=== PATIENT | female | born 1960 | race Caucasian/White ===

== ENCOUNTER 2021-10-22 15:34 | Inpatient (IN) ==
[2021-10-22] MEDS ORDERED: Thiamine (B-1) 200 MG in 0.9 % Sodium Chloride 50 ML IVPB ONE (15:58)
[2021-10-22] MEDS ORDERED: Iopamidol - 370 500 ML MLS IVP ONE (16:01)
[2021-10-22 16:29] LABS: ABG Base Excess 5 mEq/L (-2 to 3); ABG Chloride 102 mEq/L (98-107); ABG Glucose 384 mg/dL (60-95); ABG HCO3 30 mEq/L (21-27); ABG Ionized Calcium 1.21 mmol/L (1.15-1.35); ABG Oxygen Saturation 96 % (95-98); ABG PCO2 42 mmHg (35-45); ABG PH 7.46 pH Units (7.32-7.45); ABG PO2 76 mmHg (85-104); ABG TCO2 31 mEq/L (20-26)
[2021-10-22 16:37] LABS: Mean Corpuscular Volume 103.1 fL (83.0-100.0)
[2021-10-22 16:39] LABS: Hematocrit 26.2 % (35.3-44.9); Hemoglobin 8.8 g/dL (11.5-15.4); Immature Platelets 23.7 % (1.1-6.1); Mean Corpuscular HGB Conc 33.6 g/dL (31.6-35.5); Mean Corpuscular Hemoglobin 34.6 pg (28.0-33.3); Monocytes # 0.2 K/mcL (0.0-1.3); Red Blood Count 2.54 M/mcL (3.82-4.97); Red Cell Distribution Width 24.5 % (11.5-14.5); White Blood Count 1.9 K/mcL (4.3-11.1)
[2021-10-22 16:43] LABS: Amphetamine Screen,Urine Negative ng/mL (Cutoff=1000); Barbiturate Screen,Urine Negative ng/mL (Cutoff=200); Benzodiazepines Screen,Urine Negative ng/mL (Cutoff=200); Cannabinoid Screen,Urine Negative ng/mL (Cutoff = 50); Cocaine Screen,Urine Negative ng/mL (Cutoff= 300); Opiate Screen,Urine Negative ng/mL (Cutoff=300); Phencyclidine Screen,Urine Negative ng/mL (Cutoff=25)
[2021-10-22 16:46] LABS: INR 1.4; Prothrombin Time 15.5 Seconds (9.4-12.1)
[2021-10-22 16:48] LABS: Activated Partial Thrombo Time 29.1 Seconds (26.0-36.0)
[2021-10-22 16:54] LABS: Bacteria,Urine Few per hpf (None-Few); Bilirubin,Urine Negative (Negative); Blood,Urine Trace (Negative); Clarity,Urine Turbid (Clear); Color,Urine Yellow (Yellow); Glucose,Urine (UA) >=1000 mg/dL (Normal); Ketones,Urine Negative (Negative); Leukocyte Esterase,Urine Moderate (Negative); Mucus,Urine Few per lpf (None-Few); Nitrite,Urine Negative (Negative); PH,Urine 6.5 pH Units (5.0-8.0); Protein,Urine Trace mg/dL (Neg-Trace); RBC,Urine 0-3 per hpf (0-3); Squamous Epithelial Cell,Urine Few per hpf (None-Few); Urobilinogen,Urine Normal (Normal); WBC,Urine 50-100 per hpf (0-3)
[2021-10-22 16:57] LABS: Alanine Aminotransferase 15 Units/L (7-52); Albumin 2.9 g/dL (3.5-5.7); Albumin/Globulin Ratio 0.9 (1.1-2.2); Alkaline Phosphatase 105 Units/L (34-104); Aspartate Amino Transferase 23 Units/L (13-39); BUN/Creatinine Ratio 24 (6-26); Bilirubin,Direct 0.6 mg/dL (0.0-0.2); Bilirubin,Indirect 1.7 mg/dL (0.0-1.0); Bilirubin,Total 2.3 mg/dL (0.3-1.0); Blood Urea Nitrogen 23 mg/dL (8-23); Calcium 8.8 mg/dL (8.6-10.3); Carbon Dioxide 32 mEq/L (23-29); Chloride 102 mEq/L (98-107); Ethanol < 10 mg/dL (Less than 10); Globulin 3.3 g/dL (2.4-3.5); Glucose 377 mg/dL (70-105); Osmolality,Calculated 311 (280-300); Potassium 3.5 mEq/L (3.5-5.1); Sodium 141 mEq/L (136-145); Total Protein 6.2 g/dL (6.4-8.9); Troponin I < 0.03 ng/mL (< 0.04); eGFR For African Americans > 60 (> 60); eGFR For Non-African Americans > 60 (> 60)
[2021-10-22 17:25] LABS: Thyroid Stimulating Hormone 2.324 mcIU/mL (0.340-5.600)
[2021-10-22 17:49] LABS: Platelet Count 40 K/mcL (140-400)
[2021-10-22 17:50] LABS: Anisocytosis 2+ (Not Present); Hypochromasia Present (Not Present)
[2021-10-22 17:51] LABS: Microcytosis Present (Not Present); Ovalocytes 1+ (Not Present); Platelet Estimate Marked Decrease (Normal); Polychromasia 1+ (Not Present)
[2021-10-22 17:52] LABS: Tear Drop Cells 1+ (Not Present)
[2021-10-22 17:55] LABS: Neutrophils # 0.7 K/mcL (1.6-8.9)
[2021-10-22] MEDS ORDERED: Ondansetron 4 MG/2 ML VIAL IVP PRN (21:06)
[2021-10-22] MEDS ORDERED: Acetaminophen 325 MG TABLET PO PRN (21:06)
[2021-10-22] MEDS ORDERED: Naloxone 0.4 MG/ML INJ IVP PRN (21:06)
[2021-10-22] MEDS ORDERED: Lactulose 200 GM, Sodium Chloride IRRigation 700 ML RC ONE (21:09)
[2021-10-22] MEDS ORDERED: D5% in Water 1,000 ML IVC PRN (21:09)
[2021-10-22] MEDS ORDERED: Dextrose Gel 15 GM/37.5 ML TUBE PO PRN ×2 (21:09)
[2021-10-22] MEDS ORDERED: *HR* Dextrose 50 % in Water (Syg) 50 ML SYRINGE IVP PRN (21:09)
[2021-10-22] MEDS ORDERED: *HR* LORazepam 2 MG/ML VIAL IVP ONE (21:24)
[2021-10-22] MEDS ORDERED: Pantoprazole 40 MG VIAL IVP ONE (22:23)
[2021-10-22] MEDS ORDERED: Octreotide 50 MCG/ML INJ IVP ONE (22:23)
[2021-10-22] MEDS ORDERED: *HR* LORazepam 2 MG/ML VIAL IVP PRN ×2 (22:34)
[2021-10-22 22:48] LABS: Estimated Average Glucose 189 mg/dl; Hemoglobin A1C 8.2 %
[2021-10-22] MEDS ORDERED: Furosemide 20 MG/2 ML VIAL IVP ONE (23:02)
[2021-10-22] MEDS ORDERED: Insulin DETEMIR 100 UNIT/ML X5UNITS SUBQ ONE (23:15)
[2021-10-22] MEDS: *HR* LORazepam 2 MG/ML VIAL IVP PRN (23:19)
[2021-10-22] MEDS: Octreotide 400 MCG in 0.9 % Sodium Chloride 100 ML IVC SCH (23:31)
[2021-10-22 23:37] LABS: Acetaminophen < 10 mcg/mL (10-20); Salicylate < 2.5 mg/dL (15.0-30.0)
[2021-10-22] MEDS: cefTRIAXone 2,000 MG in 0.9 % Sodium Chloride Mini Bag 100 ML IVPB SCH (23:41)
[2021-10-23] MEDS: Insulin LISPRO 300 UNITS/3 ML VIAL SUBQ SCH ×4 (02:53→18:03)
[2021-10-23] MEDS: Pantoprazole 40 MG VIAL IVP SCH ×2 (06:05→17:53)
[2021-10-23 07:06] LABS: VBG Ionized Calcium 1.08 mmol/L (1.15-1.35)
[2021-10-23 07:23] LABS: % Iron Saturation 83 % (15-50); Iron 156 mcg/dL (50-170); Transferrin 135 mg/dL (203-362)
[2021-10-23] MEDS: Furosemide 20 MG/2 ML VIAL IVP SCH (07:49)
[2021-10-23] MEDS: cefTRIAXone 2,000 MG in 0.9 % Sodium Chloride Mini Bag 100 ML IVPB SCH (07:50)
[2021-10-23] MEDS: Nicotine 14 MG PATCH.TD24 TD SCH (08:00)
[2021-10-23] MEDS: Octreotide 400 MCG in 0.9 % Sodium Chloride 100 ML IVC SCH ×2 (08:09→16:08)
[2021-10-23 08:13] LABS: Alanine Aminotransferase 11 Units/L (7-52); Albumin 2.3 g/dL (3.5-5.7); Albumin/Globulin Ratio 0.9 (1.1-2.2); Alkaline Phosphatase 60 Units/L (34-104); Aspartate Amino Transferase 18 Units/L (13-39); BUN/Creatinine Ratio 27 (6-26); Bilirubin,Total 1.6 mg/dL (0.3-1.0); Blood Urea Nitrogen 17 mg/dL (8-23); Calcium 8.1 mg/dL (8.6-10.3); Carbon Dioxide 36 mEq/L (23-29); Chloride 108 mEq/L (98-107); Globulin 2.5 g/dL (2.4-3.5); Glucose 145 mg/dL (70-105); Lactate Dehydrogenase 216 Units/L (140-271); Magnesium 1.4 mg/dL (1.6-2.6); Osmolality,Calculated 310 (280-300); Phosphorous 2.9 mg/dL (2.7-4.5); Potassium 3.1 mEq/L (3.5-5.1); Sodium 148 mEq/L (136-145); Total Protein 4.8 g/dL (6.4-8.9); eGFR For African Americans > 60 (> 60); eGFR For Non-African Americans > 60 (> 60)
[2021-10-23 08:18] LABS: Hematocrit 19.5 % (35.3-44.9); Hemoglobin 6.5 g/dL (11.5-15.4); Immature Platelets 18.5 % (1.1-6.1); Immature Reticulocyte % 10.4 % (11.0-38.0); Mean Corpuscular HGB Conc 33.3 g/dL (31.6-35.5); Mean Corpuscular Hemoglobin 34.6 pg (28.0-33.3); Mean Corpuscular Volume 103.7 fL (83.0-100.0); Red Blood Count 1.88 M/mcL (3.82-4.97); Red Cell Distribution Width 24.4 % (11.5-14.5); Retculocyte # 0.07 M/mcL (0.05-0.10); Reticulocyte % 3.6 % (1.6-2.8); White Blood Count 1.8 K/mcL (4.3-11.1)
[2021-10-23 08:23] LABS: Platelet Count 35 K/mcL (140-400)
[2021-10-23 08:24] LABS: INR 1.5
[2021-10-23 08:26] LABS: Activated Partial Thrombo Time 31.2 Seconds (26.0-36.0)
[2021-10-23 08:54] LABS: Monocytes # 0.3 K/mcL (0.0-1.3); Neutrophils # 0.4 K/mcL (1.6-8.9); Poikilocytosis 2+ (Not Present)
[2021-10-23 08:55] LABS: Anisocytosis 1+ (Not Present); Hypochromasia Present (Not Present); Platelet Estimate Decreased (Normal)
[2021-10-23] MEDS ORDERED: Lactulose Oral Soln 20 GM/30 ML UDC PO SCH (09:00)
[2021-10-23] MEDS: *HR* LORazepam 2 MG/ML VIAL IVP PRN ×2 (11:11→22:45)
[2021-10-23] MEDS: Lactulose 200 GM, Sodium Chloride IRRigation 700 ML RC SCH ×2 (12:10→23:20)
[2021-10-23 12:44] LABS: Hemoglobin 6.5 g/dL (11.5-15.4)
[2021-10-23 12:46] LABS: Hematocrit 19.8 % (35.3-44.9)
[2021-10-23 15:43] LABS: Thyroid Stimulating Hormone 0.669 mcIU/mL (0.340-5.600)
[2021-10-23] MEDS ORDERED: 0.9 % Sodium Chloride 250 ML ONE (18:30)
[2021-10-23 18:33] LABS: Hemoglobin 6.6 g/dL (11.5-15.4)
[2021-10-23 19:17] LABS: Folate 11.8 ng/mL (3.0-16.0)
[2021-10-23] MEDS: Thiamine (B-1) 100 MG, Folic Acid 1 MG, MVI, adult with vitamin K 10 ML in 0.9 % Sodi... IVPB SCH (19:30)
[2021-10-24] MEDS: *HR* LORazepam 2 MG/ML VIAL IVP PRN ×3 (00:38→23:03)
[2021-10-24] MEDS: Insulin LISPRO 300 UNITS/3 ML VIAL SUBQ SCH ×4 (00:42→17:24)
[2021-10-24] MEDS: Octreotide 400 MCG in 0.9 % Sodium Chloride 100 ML IVC SCH (00:45)
[2021-10-24 02:02] LABS: Basophils % 0.9 %; Eosinophils % 1.8 %; Hematocrit 28.8 % (35.3-44.9); Hemoglobin 9.6 g/dL (11.5-15.4); Immature Granulocytes % 1.8 % (0-4); Immature Platelets 16.1 % (1.1-6.1); Lymphocytes % 45.7 %; Mean Corpuscular HGB Conc 33.3 g/dL (31.6-35.5); Mean Corpuscular Hemoglobin 32.8 pg (28.0-33.3); Mean Corpuscular Volume 98.3 fL (83.0-100.0); Monocytes # 0.4 K/mcL (0.0-1.3); Monocytes % 18.3 %; Neutrophils # 0.7 K/mcL (1.6-8.9); Red Blood Count 2.93 M/mcL (3.82-4.97); Red Cell Distribution Width 22.2 % (11.5-14.5); Segmented Neutrophils % 31.5 %; White Blood Count 2.2 K/mcL (4.3-11.1)
[2021-10-24 02:06] LABS: Platelet Count 33 K/mcL (140-400)
[2021-10-24 02:20] LABS: Alanine Aminotransferase 12 Units/L (7-52); Albumin 2.4 g/dL (3.5-5.7); Albumin/Globulin Ratio 0.9 (1.1-2.2); Alkaline Phosphatase 54 Units/L (34-104); Aspartate Amino Transferase 28 Units/L (13-39); BUN/Creatinine Ratio 28 (6-26); Bilirubin,Total 5.7 mg/dL (0.3-1.0); Blood Urea Nitrogen 19 mg/dL (8-23); Calcium 7.6 mg/dL (8.6-10.3); Carbon Dioxide 33 mEq/L (23-29); Chloride 106 mEq/L (98-107); Globulin 2.6 g/dL (2.4-3.5); Glucose 201 mg/dL (70-105); Magnesium 1.4 mg/dL (1.6-2.6); Osmolality,Calculated 308 (280-300); Phosphorous 3.5 mg/dL (2.7-4.5); Potassium 3.4 mEq/L (3.5-5.1); Sodium 145 mEq/L (136-145); eGFR For African Americans > 60 (> 60); eGFR For Non-African Americans > 60 (> 60)
[2021-10-24 02:25] LABS: Anisocytosis 2+ (Not Present); Platelet Estimate Decreased (Normal); Poikilocytosis 1+ (Not Present)
[2021-10-24 02:26] LABS: Polychromasia 1+ (Not Present)
[2021-10-24] MEDS: Pantoprazole 40 MG VIAL IVP SCH ×2 (06:55→17:22)
[2021-10-24 07:40] LABS: Hematocrit 32.2 % (35.3-44.9); Hemoglobin 10.8 g/dL (11.5-15.4)
[2021-10-24] MEDS: Nicotine 14 MG PATCH.TD24 TD SCH (08:13)
[2021-10-24] MEDS: Furosemide 20 MG/2 ML VIAL IVP SCH (08:14)
[2021-10-24] MEDS: cefTRIAXone 2,000 MG in 0.9 % Sodium Chloride Mini Bag 100 ML IVPB SCH (08:14)
[2021-10-24 11:00] LABS: Albumin 2.3 g/dL (3.5-5.7); Albumin/Globulin Ratio 0.9 (1.1-2.2); Bilirubin,Direct 1.4 mg/dL (0.0-0.2); Bilirubin,Indirect 2.4 mg/dL (0.0-1.0); Bilirubin,Total 3.8 mg/dL (0.3-1.0); Globulin 2.5 g/dL (2.4-3.5); Total Protein 4.8 g/dL (6.4-8.9)
[2021-10-24 12:55] LABS: Hemoglobin 11.2 g/dL (11.5-15.4)
[2021-10-24 12:57] LABS: Hematocrit 33.6 % (35.3-44.9)
[2021-10-24] MEDS: Lactulose 200 GM, Sodium Chloride IRRigation 700 ML RC SCH ×2 (13:09→23:03)
[2021-10-24 14:21] LABS: INR 1.4; Prothrombin Time 15.9 Seconds (9.4-12.1)
[2021-10-24] MEDS: Thiamine (B-1) 100 MG, Folic Acid 1 MG, MVI, adult with vitamin K 10 ML in 0.9 % Sodi... IVPB SCH (17:21)
[2021-10-24] MEDS ORDERED: Octreotide 400 MCG in 0.9 % Sodium Chloride 100 ML IVC SCH (17:30)
[2021-10-25] MEDS: Insulin LISPRO 300 UNITS/3 ML VIAL SUBQ SCH ×4 (00:39→17:55)
[2021-10-25] MEDS: Pantoprazole 40 MG VIAL IVP SCH ×2 (05:20→18:12)
[2021-10-25] MEDS: Nicotine 14 MG PATCH.TD24 TD SCH (08:40)
[2021-10-25] MEDS: Furosemide 20 MG/2 ML VIAL IVP SCH (08:40)
[2021-10-25] MEDS: cefTRIAXone 2,000 MG in 0.9 % Sodium Chloride Mini Bag 100 ML IVPB SCH (08:43)
[2021-10-25] MEDS: *HR* LORazepam 2 MG/ML VIAL IVP PRN (08:49)
[2021-10-25 09:21] LABS: Eosinophils # 0.1 K/mcL (0.0-0.6); Hematocrit 26.8 % (35.3-44.9); Hemoglobin 8.9 g/dL (11.5-15.4); Immature Platelets 11.8 % (1.1-6.1); Lymphocytes # 1.2 K/mcL (0.6-4.6); Mean Corpuscular HGB Conc 33.2 g/dL (31.6-35.5); Mean Corpuscular Hemoglobin 33.2 pg (28.0-33.3); Mean Platelet Volume 13.1 fL (9.4-12.4); Red Blood Count 2.68 M/mcL (3.82-4.97); Red Cell Distribution Width 23.3 % (11.5-14.5)
[2021-10-25 09:34] LABS: Platelet Count 47 K/mcL (140-400)
[2021-10-25 09:39] LABS: Alanine Aminotransferase 11 Units/L (7-52); Albumin 2.3 g/dL (3.5-5.7); Albumin/Globulin Ratio 0.9 (1.1-2.2); Alkaline Phosphatase 53 Units/L (34-104); Aspartate Amino Transferase 26 Units/L (13-39); BUN/Creatinine Ratio 32 (6-26); Bilirubin,Indirect 1.7 mg/dL (0.0-1.0); Bilirubin,Total 2.7 mg/dL (0.3-1.0); Blood Urea Nitrogen 18 mg/dL (8-23); Calcium 7.5 mg/dL (8.6-10.3); Carbon Dioxide 36 mEq/L (23-29); Chloride 109 mEq/L (98-107); Globulin 2.5 g/dL (2.4-3.5); Glucose 173 mg/dL (70-105); Magnesium 1.5 mg/dL (1.6-2.6); Osmolality,Calculated 312 (280-300); Phosphorous 2.7 mg/dL (2.7-4.5); Potassium 3.1 mEq/L (3.5-5.1); Sodium 148 mEq/L (136-145); Total Protein 4.8 g/dL (6.4-8.9); eGFR For African Americans > 60 (> 60); eGFR For Non-African Americans > 60 (> 60)
[2021-10-25 10:32] LABS: Anisocytosis 2+ (Not Present); Monocytes # 0.2 K/mcL (0.0-1.3); Neutrophils # 0.5 K/mcL (1.6-8.9); Poikilocytosis 2+ (Not Present)
[2021-10-25 10:33] LABS: Hypochromasia Present (Not Present); Platelet Estimate Decreased (Normal)
[2021-10-25] MEDS: Lactulose Oral Soln 20 GM/30 ML UDC PO SCH ×2 (11:58→21:55)
[2021-10-25] MEDS: Lactulose 200 GM, Sodium Chloride IRRigation 700 ML RC SCH ×2 (12:39→21:56)
[2021-10-25] MEDS: Thiamine (B-1) 100 MG, Folic Acid 1 MG, MVI, adult with vitamin K 10 ML in 0.9 % Sodi... IVPB SCH (17:55)
[2021-10-25] MEDS: Fluconazole 100 MG TABLET PO SCH (18:06)
[2021-10-26] MEDS: Insulin LISPRO 300 UNITS/3 ML VIAL SUBQ SCH ×5 (00:03→21:14)
[2021-10-26 03:32] LABS: Hematocrit 24.2 % (35.3-44.9); Mean Corpuscular HGB Conc 33.1 g/dL (31.6-35.5); Mean Corpuscular Hemoglobin 32.8 pg (28.0-33.3); Mean Corpuscular Volume 99.2 fL (83.0-100.0); Red Blood Count 2.44 M/mcL (3.82-4.97)
[2021-10-26 03:33] LABS: Eosinophils # 0.1 K/mcL (0.0-0.6); Immature Platelets 10.3 % (1.1-6.1); Red Cell Distribution Width 22.5 % (11.5-14.5); White Blood Count 1.3 K/mcL (4.3-11.1)
[2021-10-26 03:41] LABS: Alanine Aminotransferase 12 Units/L (7-52); Albumin 2.6 g/dL (3.5-5.7); Alkaline Phosphatase 52 Units/L (34-104); Aspartate Amino Transferase 32 Units/L (13-39); BUN/Creatinine Ratio 40 (6-26); Bilirubin,Direct 1.1 mg/dL (0.0-0.2); Bilirubin,Indirect 1.8 mg/dL (0.0-1.0); Bilirubin,Total 2.9 mg/dL (0.3-1.0); Blood Urea Nitrogen 19 mg/dL (8-23); Calcium 7.8 mg/dL (8.6-10.3); Carbon Dioxide 36 mEq/L (23-29); Chloride 111 mEq/L (98-107); Globulin 2.5 g/dL (2.4-3.5); Glucose 122 mg/dL (70-105); Osmolality,Calculated 312 (280-300); Potassium 3.3 mEq/L (3.5-5.1); Sodium 149 mEq/L (136-145); Total Protein 5.1 g/dL (6.4-8.9); eGFR For African Americans > 60 (> 60); eGFR For Non-African Americans > 60 (> 60)
[2021-10-26 04:02] LABS: Neutrophils # 0.3 K/mcL (1.6-8.9); Platelet Count 35 K/mcL (140-400)
[2021-10-26] MEDS: Pantoprazole 40 MG VIAL IVP SCH ×2 (05:25→17:05)
[2021-10-26 06:28] LABS: Anisocytosis 2+ (Not Present); Lymphocytes # 0.7 K/mcL (0.6-4.6); Monocytes # 0.2 K/mcL (0.0-1.3); Platelet Estimate Marked Decrease (Normal); Poikilocytosis 1+ (Not Present)
[2021-10-26 06:49] LABS: Magnesium 1.5 mg/dL (1.6-2.6)
[2021-10-26] MEDS: Octreotide 400 MCG in 0.9 % Sodium Chloride 100 ML IVC SCH ×2 (07:15→07:16)
[2021-10-26] MEDS: Furosemide 20 MG/2 ML VIAL IVP SCH (08:01)
[2021-10-26] MEDS: Vitamin B Complex/Vit C/Vit E 1 EACH TABLET PO SCH (08:01)
[2021-10-26] MEDS: Thiamine (B-1) 100 MG TABLET PO SCH (08:01)
[2021-10-26] MEDS: Lactulose Oral Soln 20 GM/30 ML UDC PO SCH ×2 (08:02→20:59)
[2021-10-26] MEDS: cefTRIAXone 2,000 MG in 0.9 % Sodium Chloride 10 ML IVP SCH (08:02)
[2021-10-26] MEDS: Nicotine 14 MG PATCH.TD24 TD SCH ×2 (08:03→10:19)
[2021-10-26] MEDS: Folic Acid 1 MG TABLET PO SCH (08:03)
[2021-10-26] MEDS: Fluconazole 100 MG TABLET PO SCH (08:07)
[2021-10-26] MEDS: Lactulose 200 GM, Sodium Chloride IRRigation 700 ML RC SCH ×2 (09:53→20:59)
[2021-10-27 06:34] LABS: Hemoglobin 7.7 g/dL (11.5-15.4); Mean Corpuscular Hemoglobin 32.8 pg (28.0-33.3); Red Blood Count 2.35 M/mcL (3.82-4.97)
[2021-10-27 06:36] LABS: Immature Platelets 9.5 % (1.1-6.1); Mean Corpuscular HGB Conc 33.5 g/dL (31.6-35.5); Mean Corpuscular Volume 97.9 fL (83.0-100.0); Monocytes # 0.1 K/mcL (0.0-1.3); Neutrophils # 0.2 K/mcL (1.6-8.9); Red Cell Distribution Width 22.2 % (11.5-14.5); White Blood Count 1.2 K/mcL (4.3-11.1)
[2021-10-27 06:38] LABS: Platelet Count 31 K/mcL (140-400)
[2021-10-27] MEDS: Pantoprazole 40 MG VIAL IVP SCH ×2 (06:50→16:48)
[2021-10-27 06:56] LABS: Lymphocytes # 0.9 K/mcL (0.6-4.6); Platelet Estimate Decreased (Normal)
[2021-10-27 07:03] LABS: Alanine Aminotransferase 12 Units/L (7-52); Albumin 2.4 g/dL (3.5-5.7); Alkaline Phosphatase 48 Units/L (34-104); Aspartate Amino Transferase 36 Units/L (13-39); BUN/Creatinine Ratio 34 (6-26); Bilirubin,Direct 0.9 mg/dL (0.0-0.2); Bilirubin,Indirect 1.9 mg/dL (0.0-1.0); Bilirubin,Total 2.8 mg/dL (0.3-1.0); Blood Urea Nitrogen 15 mg/dL (8-23); Calcium 7.6 mg/dL (8.6-10.3); Carbon Dioxide 34 mEq/L (23-29); Chloride 109 mEq/L (98-107); Globulin 2.3 g/dL (2.4-3.5); Glucose 107 mg/dL (70-105); Magnesium 1.6 mg/dL (1.6-2.6); Osmolality,Calculated 303 (280-300); Phosphorous 3.4 mg/dL (2.7-4.5); Potassium 3.4 mEq/L (3.5-5.1); Sodium 146 mEq/L (136-145); Total Protein 4.7 g/dL (6.4-8.9); eGFR For African Americans > 60 (> 60); eGFR For Non-African Americans > 60 (> 60)
[2021-10-27] MEDS ORDERED: Potassium Chloride Elixir 20 MEQ/15 ML UDC PO ONE (08:11)
[2021-10-27] MEDS ORDERED: CefTRIAXone 2,000 MG VIAL ONE (08:36)
[2021-10-27] MEDS: Insulin LISPRO 300 UNITS/3 ML VIAL SUBQ SCH ×4 (08:43→21:24)
[2021-10-27] MEDS: Folic Acid 1 MG TABLET PO SCH (08:46)
[2021-10-27] MEDS: Fluconazole 100 MG TABLET PO SCH (08:46)
[2021-10-27] MEDS: Thiamine (B-1) 100 MG TABLET PO SCH (08:46)
[2021-10-27] MEDS: Vitamin B Complex/Vit C/Vit E 1 EACH TABLET PO SCH (08:46)
[2021-10-27] MEDS: Lactulose Oral Soln 20 GM/30 ML UDC PO SCH ×2 (08:46→21:24)
[2021-10-27] MEDS: Furosemide 20 MG/2 ML VIAL IVP SCH (08:47)
[2021-10-27] MEDS: Nicotine 14 MG PATCH.TD24 TD SCH (08:47)
[2021-10-27] MEDS: cefTRIAXone 2,000 MG in 0.9 % Sodium Chloride 10 ML IVP SCH (08:48)
[2021-10-27] MEDS: Lactulose 200 GM, Sodium Chloride IRRigation 700 ML RC SCH (08:50)
[2021-10-28 02:25] LABS: Hemoglobin 8.3 g/dL (11.5-15.4)
[2021-10-28 02:27] LABS: Basophils % 0.9 %; Eosinophils # 0.1 K/mcL (0.0-0.6); Eosinophils % 4.8 %; Hematocrit 24.9 % (35.3-44.9); Immature Granulocytes % 2.6 % (0-4); Immature Platelets 11.8 % (1.1-6.1); Lymphocytes # 1.4 K/mcL (0.6-4.6); Lymphocytes % 61.8 %; Mean Corpuscular HGB Conc 33.3 g/dL (31.6-35.5); Mean Corpuscular Hemoglobin 32.8 pg (28.0-33.3); Mean Corpuscular Volume 98.4 fL (83.0-100.0); Mean Platelet Volume 13.8 fL (9.4-12.4); Monocytes # 0.3 K/mcL (0.0-1.3); Monocytes % 13.6 %; Neutrophils # 0.4 K/mcL (1.6-8.9); Red Blood Count 2.53 M/mcL (3.82-4.97); Red Cell Distribution Width 22.2 % (11.5-14.5); Segmented Neutrophils % 16.3 %; White Blood Count 2.3 K/mcL (4.3-11.1)
[2021-10-28 02:34] LABS: Platelet Count 37 K/mcL (140-400)
[2021-10-28 02:43] LABS: Alanine Aminotransferase 13 Units/L (7-52); Albumin 2.4 g/dL (3.5-5.7); Albumin/Globulin Ratio 0.9 (1.1-2.2); Alkaline Phosphatase 54 Units/L (34-104); Aspartate Amino Transferase 26 Units/L (13-39); BUN/Creatinine Ratio 31 (6-26); Bilirubin,Direct 0.9 mg/dL (0.0-0.2); Bilirubin,Indirect 1.4 mg/dL (0.0-1.0); Bilirubin,Total 2.3 mg/dL (0.3-1.0); Blood Urea Nitrogen 14 mg/dL (8-23); Calcium 8.3 mg/dL (8.6-10.3); Carbon Dioxide 35 mEq/L (23-29); Chloride 109 mEq/L (98-107); Globulin 2.7 g/dL (2.4-3.5); Glucose 51 mg/dL (70-105); Magnesium 1.5 mg/dL (1.6-2.6); Osmolality,Calculated 304 (280-300); Phosphorous 3.1 mg/dL (2.7-4.5); Potassium 3.2 mEq/L (3.5-5.1); Sodium 148 mEq/L (136-145); Total Protein 5.1 g/dL (6.4-8.9); eGFR For African Americans > 60 (> 60); eGFR For Non-African Americans > 60 (> 60)
[2021-10-28 03:14] LABS: Anisocytosis 2+ (Not Present); Hypochromasia Present (Not Present); Platelet Estimate Marked Decrease (Normal)
[2021-10-28] MEDS: Pantoprazole 40 MG VIAL IVP SCH (06:32)
[2021-10-28] MEDS: cefTRIAXone 2,000 MG in 0.9 % Sodium Chloride 10 ML IVP SCH (08:23)
[2021-10-28] MEDS: Fluconazole 100 MG TABLET PO SCH (08:25)
[2021-10-28] MEDS: Nicotine 14 MG PATCH.TD24 TD SCH (08:26)
[2021-10-28] MEDS: Vitamin B Complex/Vit C/Vit E 1 EACH TABLET PO SCH (08:26)
[2021-10-28] MEDS: Thiamine (B-1) 100 MG TABLET PO SCH (08:26)
[2021-10-28] MEDS: Furosemide 20 MG/2 ML VIAL IVP SCH (08:26)
[2021-10-28] MEDS: Folic Acid 1 MG TABLET PO SCH (08:28)
[2021-10-28] MEDS: Lactulose Oral Soln 20 GM/30 ML UDC PO SCH ×2 (08:28→21:30)
[2021-10-28] MEDS: Insulin LISPRO 300 UNITS/3 ML VIAL SUBQ SCH ×4 (08:29→21:29)
[2021-10-29 03:29] LABS: Basophils % 0.6 %; Mean Corpuscular Volume 98.6 fL (83.0-100.0)
[2021-10-29 03:31] LABS: Eosinophils # 0.1 K/mcL (0.0-0.6); Eosinophils % 4.8 %; Hematocrit 21.2 % (35.3-44.9); Hemoglobin 7.1 g/dL (11.5-15.4); Immature Granulocytes % 3.6 % (0-4); Lymphocytes % 59.6 %; Mean Corpuscular HGB Conc 33.5 g/dL (31.6-35.5); Monocytes # 0.3 K/mcL (0.0-1.3); Monocytes % 17.5 %; Neutrophils # 0.2 K/mcL (1.6-8.9); Red Blood Count 2.15 M/mcL (3.82-4.97); Red Cell Distribution Width 21.5 % (11.5-14.5); Segmented Neutrophils % 13.9 %; White Blood Count 1.7 K/mcL (4.3-11.1)
[2021-10-29 03:48] LABS: Platelet Count 27 K/mcL (140-400)
[2021-10-29 04:01] LABS: Alanine Aminotransferase 11 Units/L (7-52); Albumin 2.3 g/dL (3.5-5.7); Alkaline Phosphatase 57 Units/L (34-104); Aspartate Amino Transferase 22 Units/L (13-39); BUN/Creatinine Ratio 21 (6-26); Bilirubin,Direct 0.6 mg/dL (0.0-0.2); Bilirubin,Total 1.6 mg/dL (0.3-1.0); Blood Urea Nitrogen 10 mg/dL (8-23); Calcium 8.1 mg/dL (8.6-10.3); Carbon Dioxide 31 mEq/L (23-29); Chloride 106 mEq/L (98-107); Globulin 2.4 g/dL (2.4-3.5); Glucose 302 mg/dL (70-105); Magnesium 1.3 mg/dL (1.6-2.6); Osmolality,Calculated 300 (280-300); Phosphorous 2.6 mg/dL (2.7-4.5); Potassium 3.5 mEq/L (3.5-5.1); Sodium 140 mEq/L (136-145); Total Protein 4.7 g/dL (6.4-8.9); eGFR For African Americans > 60 (> 60); eGFR For Non-African Americans > 60 (> 60)
[2021-10-29 04:14] LABS: Anisocytosis 2+ (Not Present); Hypochromasia Present (Not Present); Ovalocytes 1+ (Not Present); Platelet Estimate Marked Decrease (Normal)
[2021-10-29] MEDS: Thiamine (B-1) 100 MG TABLET PO SCH (07:40)
[2021-10-29] MEDS: Vitamin B Complex/Vit C/Vit E 1 EACH TABLET PO SCH (07:40)
[2021-10-29] MEDS: Nicotine 14 MG PATCH.TD24 TD SCH (07:40)
[2021-10-29] MEDS: Folic Acid 1 MG TABLET PO SCH (07:40)
[2021-10-29] MEDS: Furosemide 20 MG/2 ML VIAL IVP SCH (07:41)
[2021-10-29] MEDS: Fluconazole 100 MG TABLET PO SCH (07:41)
[2021-10-29] MEDS: Lactulose Oral Soln 20 GM/30 ML UDC PO SCH ×2 (07:42→21:06)
[2021-10-29] MEDS: cefTRIAXone 2,000 MG in 0.9 % Sodium Chloride 10 ML IVP SCH (07:42)
[2021-10-29] MEDS: Insulin LISPRO 300 UNITS/3 ML VIAL SUBQ SCH ×4 (07:57→21:06)
[2021-10-29] MEDS ORDERED: Potassium Phosphate 44 MEQ in 0.9 % Sodium Chloride 250 ML IVPB ONE (08:11)
[2021-10-29 08:50] LABS: Hematocrit 23.8 % (35.3-44.9); Immature Platelets 13.2 % (1.1-6.1); Mean Corpuscular HGB Conc 33.6 g/dL (31.6-35.5); Mean Corpuscular Hemoglobin 33.1 pg (28.0-33.3); Mean Corpuscular Volume 98.3 fL (83.0-100.0); Red Blood Count 2.42 M/mcL (3.82-4.97); Red Cell Distribution Width 21.4 % (11.5-14.5); White Blood Count 1.8 K/mcL (4.3-11.1)
[2021-10-29 08:59] LABS: Platelet Count 29 K/mcL (140-400)
[2021-10-29] MEDS: Insulin DETEMIR 100 UNIT/ML X5UNITS SUBQ SCH ×2 (09:47→21:06)
[2021-10-29] MEDS: Melatonin 3 MG TABLET PO PRN (21:32)
[2021-10-30 02:59] LABS: Nucleated Red Blood Cells 1.1 /100 WBC (0)
[2021-10-30 03:01] LABS: Hematocrit 21.3 % (35.3-44.9); Hemoglobin 7.1 g/dL (11.5-15.4); Immature Platelets 17.4 % (1.1-6.1); Lymphocytes # 1.1 K/mcL (0.6-4.6); Mean Corpuscular HGB Conc 33.3 g/dL (31.6-35.5); Mean Corpuscular Hemoglobin 33.3 pg (28.0-33.3); Neutrophils # 0.3 K/mcL (1.6-8.9); Red Blood Count 2.13 M/mcL (3.82-4.97); Red Cell Distribution Width 21.9 % (11.5-14.5); White Blood Count 1.9 K/mcL (4.3-11.1)
[2021-10-30 03:06] LABS: Magnesium 1.5 mg/dL (1.6-2.6); Phosphorous 3.4 mg/dL (2.7-4.5)
[2021-10-30 03:07] LABS: BUN/Creatinine Ratio 21 (6-26); Blood Urea Nitrogen 10 mg/dL (8-23); Carbon Dioxide 34 mEq/L (23-29); Chloride 105 mEq/L (98-107); Glucose 271 mg/dL (70-105); Osmolality,Calculated 301 (280-300); Potassium 3.6 mEq/L (3.5-5.1); Sodium 141 mEq/L (136-145); eGFR For African Americans > 60 (> 60); eGFR For Non-African Americans > 60 (> 60)
[2021-10-30 03:18] LABS: Platelet Count 22 K/mcL (140-400)
[2021-10-30 03:37] LABS: Anisocytosis 2+ (Not Present); Eosinophils # 0.2 K/mcL (0.0-0.6); Monocytes # 0.2 K/mcL (0.0-1.3); Ovalocytes 1+ (Not Present); Poikilocytosis 1+ (Not Present); Polychromasia 1+ (Not Present)
[2021-10-30 03:38] LABS: Helmet Cells Present (Not Present); Tear Drop Cells 1+ (Not Present)
[2021-10-30 03:39] LABS: Platelet Estimate Marked Decrease (Normal)
[2021-10-30] MEDS: Insulin LISPRO 300 UNITS/3 ML VIAL SUBQ SCH ×4 (10:07→19:32)
[2021-10-30] MEDS: Insulin DETEMIR 100 UNIT/ML X5UNITS SUBQ SCH ×2 (10:08→21:09)
[2021-10-30] MEDS: Nicotine 14 MG PATCH.TD24 TD SCH (10:09)
[2021-10-30] MEDS: Furosemide 20 MG/2 ML VIAL IVP SCH (10:09)
[2021-10-30] MEDS: cefTRIAXone 2,000 MG in 0.9 % Sodium Chloride 10 ML IVP SCH (10:09)
[2021-10-30] MEDS: Folic Acid 1 MG TABLET PO SCH (10:10)
[2021-10-30] MEDS: Thiamine (B-1) 100 MG TABLET PO SCH (10:10)
[2021-10-30] MEDS: Fluconazole 100 MG TABLET PO SCH (10:10)
[2021-10-30] MEDS: Vitamin B Complex/Vit C/Vit E 1 EACH TABLET PO SCH (10:10)
[2021-10-30] MEDS: Lactulose Oral Soln 20 GM/30 ML UDC PO SCH ×2 (10:45→19:31)
[2021-10-30] MEDS: Melatonin 3 MG TABLET PO PRN (21:14)
[2021-10-31 01:33] LABS: Alanine Aminotransferase 11 Units/L (7-52); Albumin 2.3 g/dL (3.5-5.7); Albumin/Globulin Ratio 0.9 (1.1-2.2); Alkaline Phosphatase 59 Units/L (34-104); Aspartate Amino Transferase 21 Units/L (13-39); Bilirubin,Direct 0.6 mg/dL (0.0-0.2); Bilirubin,Indirect 0.8 mg/dL (0.0-1.0); Bilirubin,Total 1.4 mg/dL (0.3-1.0); Globulin 2.5 g/dL (2.4-3.5); Total Protein 4.8 g/dL (6.4-8.9)
[2021-10-31 03:13] LABS: Red Blood Count 2.07 M/mcL (3.82-4.97)
[2021-10-31 03:16] LABS: Eosinophils # 0.1 K/mcL (0.0-0.6); Hematocrit 20.8 % (35.3-44.9); Hemoglobin 6.9 g/dL (11.5-15.4); Immature Platelets 15.7 % (1.1-6.1); Mean Corpuscular HGB Conc 33.2 g/dL (31.6-35.5); Mean Corpuscular Hemoglobin 33.3 pg (28.0-33.3); Mean Corpuscular Volume 100.5 fL (83.0-100.0); Red Cell Distribution Width 21.8 % (11.5-14.5); White Blood Count 1.8 K/mcL (4.3-11.1)
[2021-10-31 03:35] LABS: Alanine Aminotransferase 11 Units/L (7-52); Albumin 2.2 g/dL (3.5-5.7); Albumin/Globulin Ratio 0.8 (1.1-2.2); Alkaline Phosphatase 63 Units/L (34-104); Aspartate Amino Transferase 17 Units/L (13-39); BUN/Creatinine Ratio 24 (6-26); Bilirubin,Direct 0.5 mg/dL (0.0-0.2); Bilirubin,Indirect 0.7 mg/dL (0.0-1.0); Bilirubin,Total 1.2 mg/dL (0.3-1.0); Blood Urea Nitrogen 11 mg/dL (8-23); Calcium 8.1 mg/dL (8.6-10.3); Carbon Dioxide 31 mEq/L (23-29); Chloride 104 mEq/L (98-107); Globulin 2.6 g/dL (2.4-3.5); Glucose 386 mg/dL (70-105); Osmolality,Calculated 301 (280-300); Potassium 3.7 mEq/L (3.5-5.1); Sodium 138 mEq/L (136-145); Total Protein 4.8 g/dL (6.4-8.9); eGFR For African Americans > 60 (> 60); eGFR For Non-African Americans > 60 (> 60)
[2021-10-31 04:47] LABS: Platelet Count 19 K/mcL (140-400)
[2021-10-31 04:50] LABS: Monocytes # 0.1 K/mcL (0.0-1.3); Neutrophils # 0.5 K/mcL (1.6-8.9); Platelet Estimate Marked Decrease (Normal)
[2021-10-31] MEDS ORDERED: 0.9 % Sodium Chloride 250 ML IVC SCH (08:30)
[2021-10-31] MEDS: Insulin DETEMIR 100 UNIT/ML X5UNITS SUBQ SCH (08:37)
[2021-10-31] MEDS: cefTRIAXone 2,000 MG in 0.9 % Sodium Chloride 10 ML IVP SCH (08:37)
[2021-10-31] MEDS: Fluconazole 100 MG TABLET PO SCH (08:38)
[2021-10-31] MEDS: Vitamin B Complex/Vit C/Vit E 1 EACH TABLET PO SCH (08:38)
[2021-10-31] MEDS: Lactulose Oral Soln 20 GM/30 ML UDC PO SCH (08:38)
[2021-10-31] MEDS: Thiamine (B-1) 100 MG TABLET PO SCH (08:38)
[2021-10-31] MEDS: Folic Acid 1 MG TABLET PO SCH (08:38)
[2021-10-31] MEDS: Furosemide 20 MG/2 ML VIAL IVP SCH (08:39)
[2021-10-31] MEDS: Insulin LISPRO 300 UNITS/3 ML VIAL SUBQ SCH ×2 (08:39→11:52)
[2021-10-31] MEDS: Nicotine 14 MG PATCH.TD24 TD SCH (08:44)
[2021-10-31 15:43] LABS: Adenovirus Not Detected (Not Detect); Bordetella Pertussis Not Detected (Not Detect); Chlamydophila pneumoniae Not Detected (Not Detect); Coronavirus 229E Not Detected (Not Detect); Coronavirus HKU1 Not Detected (Not Detect); Coronavirus NL63 Not Detected (Not Detect); Coronavirus OC43 Not Detected (Not Detect); Human Metapneumovirus Not Detected (Not Detect); Human Rhinovirus/Enterovirus Not Detected (Not Detect); Influenza A Subtype 2009 H1 Not Detected (Not Detect); Influenza B Not Detected (Not Detect); Mycoplasma pneumoniae Not Detected (Not Detect); Parainfluenza Virus 1 Not Detected (Not Detect); Parainfluenza Virus 2 Not Detected (Not Detect); Parainfluenza Virus 3 Not Detected (Not Detect); Parainfluenza Virus 4 Not Detected (Not Detect); Respiratory Syncytial Virus Not Detected (Not Detect); SARS-CoV-2 Not Detected (Not Detect)
[2021-10-31 16:37] VITALS: BP 133/121; PULSE 71; TEMP 99.8; O2SAT 127
== END 2021-10-31 17:04 | DRG 280 ==
LOC: EMEROOARM 15:34 → 3NENU 15:34 → SUATTDRO 21:49 → 3NENU 22:34 → SUATTDRO 10-24 16:55
PROVIDERS: ADMIT Internal Medicine; ATTEND Hospitalist

== ENCOUNTER 2021-12-18 15:45 | Inpatient (IN) ==
[2021-12-18] MEDS ORDERED: Iopamidol - 370 500 ML MLS IVP ONE (17:19)
[2021-12-18] MEDS ORDERED: cefTRIAXone 1,000 MG in 0.9 % Sodium Chloride 10 ML IVP ONE (17:22)
[2021-12-18 19:07] LABS: Eosinophils % 1.4 %; Hematocrit 17.2 % (35.3-44.9); Immature Granulocytes % 2.1 % (0-4); Mean Corpuscular HGB Conc 33.7 g/dL (31.6-35.5); Mean Corpuscular Hemoglobin 37.2 pg (28.0-33.3); Mean Corpuscular Volume 110.3 fL (83.0-100.0); Red Blood Count 1.56 M/mcL (3.82-4.97)
[2021-12-18 19:09] LABS: Basophils % 0.7 %; Immature Platelets 23.8 % (1.1-6.1); Lymphocytes # 1.3 K/mcL (0.6-4.6); Lymphocytes % 45.4 %; Monocytes # 0.5 K/mcL (0.0-1.3); Neutrophils # 0.9 K/mcL (1.6-8.9); Segmented Neutrophils % 32.4 %; White Blood Count 2.8 K/mcL (4.3-11.1)
[2021-12-18 19:14] LABS: Platelet Count 38 K/mcL (140-400)
[2021-12-18 19:16] LABS: INR 1.5; Prothrombin Time 17.1 Seconds (9.4-12.1)
[2021-12-18 19:18] LABS: Activated Partial Thrombo Time 29.9 Seconds (26.0-36.0)
[2021-12-18 19:20] LABS: Hemoglobin 5.8 g/dL (11.5-15.4)
[2021-12-18 19:28] LABS: Alanine Aminotransferase 29 Units/L (7-52); Albumin/Globulin Ratio 1.1 (1.1-2.2); Alkaline Phosphatase 76 Units/L (34-104); Aspartate Amino Transferase 37 Units/L (13-39); BUN/Creatinine Ratio 33 (6-26); Bilirubin,Total 2.1 mg/dL (0.3-1.0); Blood Urea Nitrogen 20 mg/dL (8-23); Calcium 8.7 mg/dL (8.6-10.3); Carbon Dioxide 26 mEq/L (23-29); Chloride 99 mEq/L (98-107); Globulin 2.7 g/dL (2.4-3.5); Glucose 468 mg/dL (70-105); Osmolality,Calculated 293 (280-300); Sodium 130 mEq/L (136-145); Total Protein 5.7 g/dL (6.4-8.9); Troponin I < 0.03 ng/mL (< 0.04)
[2021-12-18 19:35] LABS: Anisocytosis 2+ (Not Present); Hypochromasia Present (Not Present)
[2021-12-18 19:36] LABS: Macrocytosis Present (Not Present); Microcytosis Present (Not Present); Ovalocytes 2+ (Not Present); Poikilocytosis 2+ (Not Present)
[2021-12-18 19:37] LABS: Smudge Cells Present (Not Present); Target Cells 1+ (Not Present)
[2021-12-18 19:38] LABS: Large Platelets Present (Not Present); Platelet Estimate Marked Decrease (Normal); Polychromasia 1+ (Not Present)
[2021-12-18 19:39] LABS: Spherocytes 1+ (Not Present)
[2021-12-18] MEDS ORDERED: 0.9 % Sodium Chloride 1,000 ML ONE (21:55)
[2021-12-18] MEDS ORDERED: 0.9 % Sodium Chloride 1,000 ML IV ONE (22:00)
[2021-12-19] MEDS ORDERED: Naloxone 0.4 MG/ML INJ IVP PRN (00:53)
[2021-12-19] MEDS ORDERED: Ondansetron 4 MG/2 ML VIAL IVP PRN (00:53)
[2021-12-19] MEDS ORDERED: *HR* Dextrose 50 % in Water (Syg) 50 ML SYRINGE IVP PRN (00:55)
[2021-12-19] MEDS ORDERED: D5% in Water 1,000 ML IVC PRN (00:55)
[2021-12-19] MEDS ORDERED: Dextrose Gel 15 GM/37.5 ML TUBE PO PRN ×2 (00:55)
[2021-12-19 01:44] LABS: Amphetamine Screen,Urine Negative ng/mL (Cutoff=1000); Barbiturate Screen,Urine Negative ng/mL (Cutoff=200); Benzodiazepines Screen,Urine Negative ng/mL (Cutoff=200); Cannabinoid Screen,Urine Negative ng/mL (Cutoff = 50); Cocaine Screen,Urine Negative ng/mL (Cutoff= 300); Opiate Screen,Urine Negative ng/mL (Cutoff=300); Phencyclidine Screen,Urine Negative ng/mL (Cutoff=25)
[2021-12-19 01:50] LABS: Bilirubin,Urine Negative (Negative); Blood,Urine Negative (Negative); Clarity,Urine Clear (Clear); Color,Urine Colorless (Yellow); Glucose,Urine (UA) >=1000 mg/dL (Normal); Ketones,Urine Negative (Negative); Leukocyte Esterase,Urine Negative (Negative); Nitrite,Urine Negative (Negative); PH,Urine 7.5 pH Units (5.0-8.0); Protein,Urine Trace mg/dL (Neg-Trace); RBC,Urine 0-3 per hpf (0-3); Specific Gravity,Urine > 1.030 (1.010-1.025); Squamous Epithelial Cell,Urine Few per hpf (None-Few); Urobilinogen,Urine Normal (Normal); WBC,Urine 0-3 per hpf (0-3)
[2021-12-19] MEDS: Insulin LISPRO 300 UNITS/3 ML VIAL SUBQ SCH ×5 (02:05→17:56)
[2021-12-19] MEDS ORDERED: Lactulose 200 GM, Sodium Chloride IRRigation 700 ML RC ONE (03:02)
[2021-12-19] MEDS: Thiamine (B-1) 100 MG, Folic Acid 1 MG, MVI, adult with vitamin K 10 ML in 0.9 % Sodi... IVPB SCH (03:31)
[2021-12-19] MEDS: Furosemide 20 MG/2 ML VIAL IVP SCH (03:32)
[2021-12-19] MEDS: Pantoprazole 40 MG VIAL IVP SCH (06:46)
[2021-12-19 08:36] LABS: Adenovirus Not Detected (Not Detect); Bordetella Pertussis Not Detected (Not Detect); Chlamydophila pneumoniae Not Detected (Not Detect); Coronavirus 229E Not Detected (Not Detect); Coronavirus HKU1 Not Detected (Not Detect); Coronavirus NL63 Not Detected (Not Detect); Coronavirus OC43 Not Detected (Not Detect); Human Metapneumovirus Not Detected (Not Detect); Human Rhinovirus/Enterovirus Not Detected (Not Detect); Influenza A Subtype 2009 H1 Not Detected (Not Detect); Influenza B Not Detected (Not Detect); Mycoplasma pneumoniae Not Detected (Not Detect); Parainfluenza Virus 1 Not Detected (Not Detect); Parainfluenza Virus 2 Not Detected (Not Detect); Parainfluenza Virus 3 Not Detected (Not Detect); Parainfluenza Virus 4 Not Detected (Not Detect); Respiratory Syncytial Virus Not Detected (Not Detect); SARS-CoV-2 Not Detected (Not Detect)
[2021-12-19 09:51] LABS: A.calcoaceticus-baumannii cplx Not Detected (Not Detect); Bacteroides fragilis by PCR Not Detected (Not Detect); Candida albicans by PCR Not Detected (Not Detect); Candida auris by PCR Not Detected (Not Detect); Candida glabrata by PCR Not Detected (Not Detect); Candida krusei by PCR Not Detected (Not Detect); Candida parapsilosis by PCR Not Detected (Not Detect); Candida tropicalis by PCR Not Detected (Not Detect); Crypto. neoformans/gattii PCR Not Detected (Not Detect); Enterobacter cloacae Cmplx PCR Not Detected (Not Detect); Enterobacterales by PCR Not Detected (Not Detect); Enterococcus faecalis by PCR Not Detected (Not Detect); Enterococcus faecium by PCR Not Detected (Not Detect); Escherichia coli by PCR Not Detected (Not Detect); Klebs. pneumoniae group by PCR Not Detected (Not Detect); Klebsiella aerogenes by PCR Not Detected (Not Detect); Klebsiella oxytoca by PCR Not Detected (Not Detect); Proteus by PCR Not Detected (Not Detect); Pseudomonas aeruginosa by PCR Not Detected (Not Detect); Salmonella species by PCR Not Detected (Not Detect); Serratia marcescens by PCR Not Detected (Not Detect); Staph epidermidis by PCR Not Detected (Not Detect); Staph lugdunensis by PCR Not Detected (Not Detect); Staphylococcus aureus by PCR Not Detected (Not Detect); Staphylococcus by PCR Not Detected (Not Detect); Stenotrophomonas maltophilia Not Detected (Not Detect); Streptococcus agalactiae(B)PCR Not Detected (Not Detect); Streptococcus by PCR Not Detected (Not Detect); Streptococcus pneumoniae PCR Not Detected (Not Detect); Streptococcus pyogenes (A) PCR Not Detected (Not Detect)
[2021-12-19] MEDS: Lactulose Oral Soln 20 GM/30 ML UDC PO SCH ×2 (10:02→20:57)
[2021-12-19] MEDS: cefTRIAXone 2,000 MG in 0.9 % Sodium Chloride 20 ML IVP SCH (10:02)
[2021-12-19] MEDS: Propranolol LA (24 HR) 60 MG CAP.SA.24H PO SCH (10:39)
[2021-12-19 14:55] LABS: Red Cell Distribution Width 23.9 % (11.5-14.5)
[2021-12-19 14:57] LABS: Hematocrit 22.8 % (35.3-44.9); Immature Platelets 21.8 % (1.1-6.1); Mean Corpuscular HGB Conc 35.1 g/dL (31.6-35.5); Mean Corpuscular Hemoglobin 36.2 pg (28.0-33.3); Mean Corpuscular Volume 103.2 fL (83.0-100.0); Neutrophils # 0.8 K/mcL (1.6-8.9); Red Blood Count 2.21 M/mcL (3.82-4.97); White Blood Count 2.6 K/mcL (4.3-11.1)
[2021-12-19 14:58] LABS: Platelet Count 38 K/mcL (140-400)
[2021-12-19 15:05] LABS: INR 1.5; Prothrombin Time 16.3 Seconds (9.4-12.1)
[2021-12-19 15:24] LABS: BUN/Creatinine Ratio 27 (6-26); Blood Urea Nitrogen 14 mg/dL (8-23); Calcium 8.2 mg/dL (8.6-10.3); Carbon Dioxide 25 mEq/L (23-29); Chloride 106 mEq/L (98-107); Glucose 279 mg/dL (70-105); Magnesium 1.3 mg/dL (1.6-2.6); Osmolality,Calculated 295 (280-300); Phosphorous 2.8 mg/dL (2.7-4.5); Potassium 4.1 mEq/L (3.5-5.1); Sodium 137 mEq/L (136-145)
[2021-12-19 15:25] LABS: Albumin 2.8 g/dL (3.5-5.7); Albumin/Globulin Ratio 1.1 (1.1-2.2); Bilirubin,Direct 0.7 mg/dL (0.0-0.2); Bilirubin,Indirect 1.4 mg/dL (0.0-1.0); Bilirubin,Total 2.1 mg/dL (0.3-1.0); Globulin 2.6 g/dL (2.4-3.5); Lymphocytes # 1.5 K/mcL (0.6-4.6); Monocytes # 0.3 K/mcL (0.0-1.3); Platelet Estimate Marked Decrease (Normal); Reactive Lymphocytes Present (Not Present); Total Protein 5.4 g/dL (6.4-8.9)
[2021-12-19 15:45] LABS: Folate > 22.3 ng/mL (3.0-16.0); Vitamin B12 824 pg/mL (250-1100)
[2021-12-19] MEDS ORDERED: Insulin LISPRO 300 UNITS/3 ML VIAL SUBQ SCH (21:00)
[2021-12-20] MEDS: Insulin LISPRO 300 UNITS/3 ML VIAL SUBQ SCH ×4 (00:24→17:41)
[2021-12-20 05:11] LABS: Mean Corpuscular Volume 104.1 fL (83.0-100.0); Red Cell Distribution Width 23.9 % (11.5-14.5)
[2021-12-20 05:13] LABS: Alanine Aminotransferase 24 Units/L (7-52); Albumin 2.6 g/dL (3.5-5.7); Alkaline Phosphatase 54 Units/L (34-104); Aspartate Amino Transferase 27 Units/L (13-39); BUN/Creatinine Ratio 24 (6-26); Bilirubin,Total 1.9 mg/dL (0.3-1.0); Blood Urea Nitrogen 12 mg/dL (8-23); Calcium 8.1 mg/dL (8.6-10.3); Carbon Dioxide 26 mEq/L (23-29); Chloride 109 mEq/L (98-107); Globulin 2.5 g/dL (2.4-3.5); Glucose 173 mg/dL (70-105); Hematocrit 20.5 % (35.3-44.9); Immature Platelets 21.5 % (1.1-6.1); Magnesium 1.3 mg/dL (1.6-2.6); Mean Corpuscular HGB Conc 34.1 g/dL (31.6-35.5); Mean Corpuscular Hemoglobin 35.5 pg (28.0-33.3); Nucleated Red Blood Cells 0.9 /100 WBC (0); Osmolality,Calculated 294 (280-300); Phosphorous 2.6 mg/dL (2.7-4.5); Potassium 3.4 mEq/L (3.5-5.1); Red Blood Count 1.97 M/mcL (3.82-4.97); Sodium 140 mEq/L (136-145); Total Protein 5.1 g/dL (6.4-8.9); White Blood Count 2.3 K/mcL (4.3-11.1)
[2021-12-20 05:15] LABS: Platelet Count 38 K/mcL (140-400)
[2021-12-20] MEDS: Pantoprazole 40 MG VIAL IVP SCH (05:45)
[2021-12-20 06:03] LABS: Eosinophils # 0.1 K/mcL (0.0-0.6); Lymphocytes # 1.1 K/mcL (0.6-4.6); Monocytes # 0.5 K/mcL (0.0-1.3); Neutrophils # 0.6 K/mcL (1.6-8.9); Platelet Estimate Decreased (Normal)
[2021-12-20] MEDS: Furosemide 20 MG/2 ML VIAL IVP SCH (09:15)
[2021-12-20] MEDS: cefTRIAXone 2,000 MG in 0.9 % Sodium Chloride 20 ML IVP SCH (09:15)
[2021-12-20] MEDS: Lactulose Oral Soln 20 GM/30 ML UDC PO SCH ×3 (09:15→21:50)
[2021-12-20] MEDS: Propranolol LA (24 HR) 60 MG CAP.SA.24H PO SCH (09:15)
[2021-12-20 11:02] LABS: Hematocrit 21.5 % (35.3-44.9); Hemoglobin 7.4 g/dL (11.5-15.4)
[2021-12-20] MEDS: Thiamine (B-1) 100 MG, Folic Acid 1 MG, MVI, adult with vitamin K 10 ML in 0.9 % Sodi... IVPB SCH (16:14)
[2021-12-21] MEDS: Insulin LISPRO 300 UNITS/3 ML VIAL SUBQ SCH ×7 (02:25→20:24)
[2021-12-21 02:44] LABS: Basophils % 0.5 %; Hemoglobin 6.6 g/dL (11.5-15.4); Red Cell Distribution Width 22.9 % (11.5-14.5)
[2021-12-21 02:46] LABS: Eosinophils % 1.9 %; Hematocrit 19.4 % (35.3-44.9); Immature Granulocytes % 1.9 % (0-4); Lymphocytes # 1.3 K/mcL (0.6-4.6); Lymphocytes % 62.4 %; Mean Corpuscular Hemoglobin 35.7 pg (28.0-33.3); Mean Corpuscular Volume 104.9 fL (83.0-100.0); Monocytes # 0.5 K/mcL (0.0-1.3); Monocytes % 21.6 %; Neutrophils # 0.3 K/mcL (1.6-8.9); Red Blood Count 1.85 M/mcL (3.82-4.97); Segmented Neutrophils % 11.7 %; White Blood Count 2.1 K/mcL (4.3-11.1)
[2021-12-21 02:51] LABS: Platelet Count 39 K/mcL (140-400)
[2021-12-21 03:00] LABS: Alanine Aminotransferase 21 Units/L (7-52); Albumin 2.5 g/dL (3.5-5.7); Alkaline Phosphatase 54 Units/L (34-104); Aspartate Amino Transferase 24 Units/L (13-39); BUN/Creatinine Ratio 21 (6-26); Bilirubin,Total 1.6 mg/dL (0.3-1.0); Blood Urea Nitrogen 11 mg/dL (8-23); Calcium 7.8 mg/dL (8.6-10.3); Carbon Dioxide 25 mEq/L (23-29); Chloride 106 mEq/L (98-107); Globulin 2.4 g/dL (2.4-3.5); Glucose 330 mg/dL (70-105); Magnesium 1.2 mg/dL (1.6-2.6); Osmolality,Calculated 294 (280-300); Phosphorous 2.5 mg/dL (2.7-4.5); Potassium 3.4 mEq/L (3.5-5.1); Sodium 136 mEq/L (136-145); Total Protein 4.9 g/dL (6.4-8.9)
[2021-12-21 03:23] LABS: Platelet Estimate Decreased (Normal)
[2021-12-21 03:24] LABS: Anisocytosis 2+ (Not Present); Macrocytosis Present (Not Present); Ovalocytes 1+ (Not Present); Poikilocytosis 1+ (Not Present)
[2021-12-21] MEDS: Pantoprazole 40 MG VIAL IVP SCH ×2 (05:31→20:27)
[2021-12-21] MEDS: Lactulose Oral Soln 20 GM/30 ML UDC PO SCH ×3 (07:43→20:29)
[2021-12-21] MEDS: Propranolol LA (24 HR) 60 MG CAP.SA.24H PO SCH (07:44)
[2021-12-21] MEDS: cefTRIAXone 2,000 MG in 0.9 % Sodium Chloride 20 ML IVP SCH (07:44)
[2021-12-21] MEDS: Furosemide 20 MG/2 ML VIAL IVP SCH (07:44)
[2021-12-21] MEDS ORDERED: 0.9 % Sodium Chloride 250 ML ONE (10:33)
[2021-12-21] MEDS: Thiamine (B-1) 100 MG, Folic Acid 1 MG, MVI, adult with vitamin K 10 ML in 0.9 % Sodi... IVPB SCH (18:00)
[2021-12-22 05:19] LABS: Hematocrit 25.8 % (35.3-44.9); Mean Corpuscular HGB Conc 34.9 g/dL (31.6-35.5); Red Cell Distribution Width 21.7 % (11.5-14.5)
[2021-12-22 05:21] LABS: Basophils % 1.1 %; Eosinophils # 0.1 K/mcL (0.0-0.6); Eosinophils % 2.8 %; Immature Granulocytes % 4.2 % (0-4); Immature Platelets 19.2 % (1.1-6.1); Lymphocytes # 0.9 K/mcL (0.6-4.6); Lymphocytes % 31.3 %; Mean Corpuscular Hemoglobin 35.2 pg (28.0-33.3); Mean Corpuscular Volume 100.8 fL (83.0-100.0); Monocytes # 0.8 K/mcL (0.0-1.3); Monocytes % 27.8 %; Neutrophils # 0.9 K/mcL (1.6-8.9); Nucleated Red Blood Cells 0.7 /100 WBC (0); Red Blood Count 2.56 M/mcL (3.82-4.97); Segmented Neutrophils % 32.8 %; White Blood Count 2.8 K/mcL (4.3-11.1)
[2021-12-22 05:24] LABS: Platelet Count 41 K/mcL (140-400)
[2021-12-22 05:44] LABS: Alanine Aminotransferase 20 Units/L (7-52); Albumin 2.8 g/dL (3.5-5.7); Albumin/Globulin Ratio 1.2 (1.1-2.2); Alkaline Phosphatase 69 Units/L (34-104); Aspartate Amino Transferase 23 Units/L (13-39); BUN/Creatinine Ratio 15 (6-26); Bilirubin,Total 2.6 mg/dL (0.3-1.0); Blood Urea Nitrogen 7 mg/dL (8-23); Calcium 7.9 mg/dL (8.6-10.3); Carbon Dioxide 24 mEq/L (23-29); Chloride 106 mEq/L (98-107); Globulin 2.4 g/dL (2.4-3.5); Glucose 315 mg/dL (70-105); Magnesium 1.1 mg/dL (1.6-2.6); Osmolality,Calculated 286 (280-300); Phosphorous 2.1 mg/dL (2.7-4.5); Potassium 3.9 mEq/L (3.5-5.1); Sodium 133 mEq/L (136-145); Total Protein 5.2 g/dL (6.4-8.9)
[2021-12-22] MEDS: cefTRIAXone 2,000 MG in 0.9 % Sodium Chloride 20 ML IVP SCH (08:45)
[2021-12-22] MEDS: Furosemide 20 MG/2 ML VIAL IVP SCH (08:45)
[2021-12-22] MEDS: Pantoprazole 40 MG VIAL IVP SCH ×2 (08:46→21:31)
[2021-12-22] MEDS: Insulin LISPRO 300 UNITS/3 ML VIAL SUBQ SCH ×4 (08:47→20:13)
[2021-12-22] MEDS: Lactulose Oral Soln 20 GM/30 ML UDC PO SCH ×3 (08:48→21:31)
[2021-12-22] MEDS: Propranolol LA (24 HR) 60 MG CAP.SA.24H PO SCH (08:48)
[2021-12-22] MEDS ORDERED: *HR* OxyCODONE Immed Rel 5 MG TABLET PO ONE (16:36)
[2021-12-23 05:42] LABS: Nucleated Red Blood Cells 0.6 /100 WBC (0); Red Cell Distribution Width 22.2 % (11.5-14.5)
[2021-12-23 05:44] LABS: Eosinophils # 0.1 K/mcL (0.0-0.6); Hematocrit 25.2 % (35.3-44.9); Hemoglobin 8.6 g/dL (11.5-15.4); Immature Platelets 19.9 % (1.1-6.1); Lymphocytes # 1.2 K/mcL (0.6-4.6); Mean Corpuscular HGB Conc 34.1 g/dL (31.6-35.5); Mean Corpuscular Hemoglobin 35.1 pg (28.0-33.3); Mean Corpuscular Volume 102.9 fL (83.0-100.0); Red Blood Count 2.45 M/mcL (3.82-4.97); White Blood Count 3.1 K/mcL (4.3-11.1)
[2021-12-23 05:51] LABS: Platelet Count 38 K/mcL (140-400)
[2021-12-23 06:34] LABS: Monocytes # 0.8 K/mcL (0.0-1.3); Neutrophils # 0.9 K/mcL (1.6-8.9)
[2021-12-23 06:35] LABS: Anisocytosis 1+ (Not Present); Platelet Estimate Decreased (Normal); Poikilocytosis 1+ (Not Present)
[2021-12-23 06:41] LABS: Alanine Aminotransferase 17 Units/L (7-52)
[2021-12-23 07:57] LABS: Albumin 2.7 g/dL (3.5-5.7); Albumin/Globulin Ratio 1.1 (1.1-2.2); Alkaline Phosphatase 65 Units/L (34-104); Aspartate Amino Transferase 20 Units/L (13-39); BUN/Creatinine Ratio 22 (6-26); Bilirubin,Total 2.4 mg/dL (0.3-1.0); Blood Urea Nitrogen 11 mg/dL (8-23); Calcium 7.9 mg/dL (8.6-10.3); Carbon Dioxide 26 mEq/L (23-29); Chloride 104 mEq/L (98-107); Globulin 2.4 g/dL (2.4-3.5); Glucose 196 mg/dL (70-105); Magnesium 1.5 mg/dL (1.6-2.6); Osmolality,Calculated 285 (280-300); Phosphorous 2.6 mg/dL (2.7-4.5); Sodium 135 mEq/L (136-145); Total Protein 5.1 g/dL (6.4-8.9)
[2021-12-23] MEDS: Lactulose Oral Soln 20 GM/30 ML UDC PO SCH ×2 (09:32→17:47)
[2021-12-23] MEDS: Pantoprazole 40 MG VIAL IVP SCH ×2 (09:32→22:13)
[2021-12-23] MEDS: cefTRIAXone 2,000 MG in 0.9 % Sodium Chloride 20 ML IVP SCH (09:33)
[2021-12-23] MEDS: Furosemide 20 MG/2 ML VIAL IVP SCH (09:33)
[2021-12-23] MEDS: Insulin LISPRO 300 UNITS/3 ML VIAL SUBQ SCH ×4 (09:49→22:15)
[2021-12-23] MEDS: Propranolol LA (24 HR) 60 MG CAP.SA.24H PO SCH (10:12)
[2021-12-23] MEDS ORDERED: *HR* OxyCODONE Immed Rel 5 MG TABLET PO ONE (14:20)
[2021-12-24] MEDS: Lactulose Oral Soln 20 GM/30 ML UDC PO SCH ×4 (07:23→21:46)
[2021-12-24] MEDS ORDERED: *HR* HYDROmorphone (PF) 1 MG/ML SYRINGE IVP STA (07:36)
[2021-12-24] MEDS: Insulin LISPRO 300 UNITS/3 ML VIAL SUBQ SCH ×4 (09:27→21:45)
[2021-12-24] MEDS: Pantoprazole 40 MG VIAL IVP SCH (09:32)
[2021-12-24] MEDS: cefTRIAXone 2,000 MG in 0.9 % Sodium Chloride 20 ML IVP SCH (09:32)
[2021-12-24 09:33] LABS: Hematocrit 21.8 % (35.3-44.9); Hemoglobin 7.5 g/dL (11.5-15.4); Immature Granulocytes % 3.9 % (0-4); Immature Platelets 19.3 % (1.1-6.1); Lymphocytes # 0.9 K/mcL (0.6-4.6); Lymphocytes % 46.1 %; Mean Corpuscular HGB Conc 34.4 g/dL (31.6-35.5); Mean Corpuscular Hemoglobin 35.5 pg (28.0-33.3); Mean Corpuscular Volume 103.3 fL (83.0-100.0); Monocytes # 0.6 K/mcL (0.0-1.3); Monocytes % 28.4 %; Neutrophils # 0.4 K/mcL (1.6-8.9); Red Blood Count 2.11 M/mcL (3.82-4.97); Red Cell Distribution Width 22.2 % (11.5-14.5); Segmented Neutrophils % 19.6 %
[2021-12-24] MEDS: Furosemide 20 MG/2 ML VIAL IVP SCH (09:41)
[2021-12-24 09:43] LABS: Alanine Aminotransferase 16 Units/L (7-52); Albumin 2.5 g/dL (3.5-5.7); Alkaline Phosphatase 60 Units/L (34-104); Aspartate Amino Transferase 19 Units/L (13-39); BUN/Creatinine Ratio 23 (6-26); Bilirubin,Total 2.2 mg/dL (0.3-1.0); Blood Urea Nitrogen 11 mg/dL (8-23); Calcium 7.9 mg/dL (8.6-10.3); Carbon Dioxide 29 mEq/L (23-29); Chloride 104 mEq/L (98-107); Globulin 2.4 g/dL (2.4-3.5); Glucose 189 mg/dL (70-105); Magnesium 1.5 mg/dL (1.6-2.6); Osmolality,Calculated 284 (280-300); Phosphorous 2.6 mg/dL (2.7-4.5); Potassium 3.7 mEq/L (3.5-5.1); Sodium 135 mEq/L (136-145); Total Protein 4.9 g/dL (6.4-8.9)
[2021-12-24] MEDS: Propranolol LA (24 HR) 60 MG CAP.SA.24H PO SCH (09:59)
[2021-12-24] MEDS ORDERED: *HR* LORazepam 2 MG/ML VIAL IVP PRN (10:26)
[2021-12-24 10:55] LABS: Platelet Count 30 K/mcL (140-400)
[2021-12-24 10:56] LABS: Anisocytosis 1+ (Not Present); Platelet Estimate Marked Decrease (Normal); Reactive Lymphocytes Present (Not Present)
[2021-12-24] MEDS: Nystatin POWDER 30 GM BOTTLE TP SCH ×3 (11:07→21:46)
[2021-12-24] MEDS: Multivit/Ca/Min/Fe/FA 1 TAB TABLET PO SCH (12:23)
[2021-12-25 05:55] LABS: Hemoglobin 8.5 g/dL (11.5-15.4)
[2021-12-25 05:56] LABS: Basophils % 2.1 %; Eosinophils % 1.4 %; Hematocrit 25.1 % (35.3-44.9); Immature Granulocytes % 2.8 % (0-4); Lymphocytes # 0.9 K/mcL (0.6-4.6); Lymphocytes % 65.7 %; Mean Corpuscular HGB Conc 33.9 g/dL (31.6-35.5); Mean Corpuscular Hemoglobin 35.1 pg (28.0-33.3); Mean Corpuscular Volume 103.7 fL (83.0-100.0); Monocytes # 0.3 K/mcL (0.0-1.3); Monocytes % 19.6 %; Neutrophils # 0.1 K/mcL (1.6-8.9); Red Blood Count 2.42 M/mcL (3.82-4.97); Red Cell Distribution Width 21.8 % (11.5-14.5); Segmented Neutrophils % 8.4 %; White Blood Count 1.4 K/mcL (4.3-11.1)
[2021-12-25 06:17] LABS: Alanine Aminotransferase 14 Units/L (7-52); Albumin 2.6 g/dL (3.5-5.7); Alkaline Phosphatase 61 Units/L (34-104); Aspartate Amino Transferase 22 Units/L (13-39); BUN/Creatinine Ratio 21 (6-26); Blood Urea Nitrogen 11 mg/dL (8-23); Calcium 8.1 mg/dL (8.6-10.3); Carbon Dioxide 27 mEq/L (23-29); Chloride 106 mEq/L (98-107); Globulin 2.5 g/dL (2.4-3.5); Glucose 200 mg/dL (70-105); Magnesium 1.4 mg/dL (1.6-2.6); Osmolality,Calculated 289 (280-300); Phosphorous 2.9 mg/dL (2.7-4.5); Potassium 3.6 mEq/L (3.5-5.1); Sodium 137 mEq/L (136-145); Total Protein 5.1 g/dL (6.4-8.9)
[2021-12-25 07:06] LABS: Platelet Count 27 K/mcL (140-400)
[2021-12-25 07:08] LABS: Anisocytosis 2+ (Not Present); Platelet Estimate Marked Decrease (Normal)
[2021-12-25] MEDS: Insulin LISPRO 300 UNITS/3 ML VIAL SUBQ SCH ×4 (08:18→20:55)
[2021-12-25] MEDS: Lactulose Oral Soln 20 GM/30 ML UDC PO SCH ×3 (08:19→20:55)
[2021-12-25] MEDS: Multivit/Ca/Min/Fe/FA 1 TAB TABLET PO SCH (08:19)
[2021-12-25] MEDS: Furosemide 20 MG/2 ML VIAL IVP SCH (08:19)
[2021-12-25] MEDS: Propranolol LA (24 HR) 60 MG CAP.SA.24H PO SCH (08:19)
[2021-12-25] MEDS: cefTRIAXone 2,000 MG in 0.9 % Sodium Chloride 20 ML IVP SCH (08:20)
[2021-12-25] MEDS: Nystatin POWDER 30 GM BOTTLE TP SCH ×3 (08:44→20:56)
[2021-12-26] MEDS: Propranolol LA (24 HR) 60 MG CAP.SA.24H PO SCH (08:27)
[2021-12-26] MEDS: Furosemide 20 MG/2 ML VIAL IVP SCH (08:27)
[2021-12-26] MEDS: Insulin LISPRO 300 UNITS/3 ML VIAL SUBQ SCH ×4 (08:57→22:46)
[2021-12-26] MEDS: cefTRIAXone 2,000 MG in 0.9 % Sodium Chloride 20 ML IVP SCH (08:58)
[2021-12-26] MEDS: Multivit/Ca/Min/Fe/FA 1 TAB TABLET PO SCH (08:58)
[2021-12-26] MEDS: Nystatin POWDER 30 GM BOTTLE TP SCH ×3 (08:58→23:42)
[2021-12-26] MEDS: Lactulose Oral Soln 20 GM/30 ML UDC PO SCH ×3 (08:58→22:44)
[2021-12-26] MEDS ORDERED: Insulin DETEMIR 100 UNIT/ML X5UNITS SUBQ SCH (21:00)
[2021-12-26 21:54] LABS: Alanine Aminotransferase 15 Units/L (7-52); Albumin 2.5 g/dL (3.5-5.7); Albumin/Globulin Ratio 0.9 (1.1-2.2); Alkaline Phosphatase 72 Units/L (34-104); Aspartate Amino Transferase 30 Units/L (13-39); BUN/Creatinine Ratio 13 (6-26); Bilirubin,Total 1.2 mg/dL (0.3-1.0); Blood Urea Nitrogen 7 mg/dL (8-23); Carbon Dioxide 23 mEq/L (23-29); Chloride 108 mEq/L (98-107); Globulin 2.7 g/dL (2.4-3.5); Glucose 231 mg/dL (70-105); Magnesium 1.4 mg/dL (1.6-2.6); Osmolality,Calculated 285 (280-300); Phosphorous 2.5 mg/dL (2.7-4.5); Potassium 4.1 mEq/L (3.5-5.1); Sodium 135 mEq/L (136-145); Total Protein 5.2 g/dL (6.4-8.9)
[2021-12-27 08:29] LABS: Red Cell Distribution Width 21.7 % (11.5-14.5)
[2021-12-27 08:31] LABS: Hemoglobin 8.2 g/dL (11.5-15.4); Immature Platelets 21.3 % (1.1-6.1); Mean Corpuscular HGB Conc 34.2 g/dL (31.6-35.5); Mean Corpuscular Hemoglobin 35.5 pg (28.0-33.3); Mean Corpuscular Volume 103.9 fL (83.0-100.0); Neutrophils # 0.2 K/mcL (1.6-8.9); Red Blood Count 2.31 M/mcL (3.82-4.97); White Blood Count 1.5 K/mcL (4.3-11.1)
[2021-12-27 08:39] LABS: Platelet Count 28 K/mcL (140-400)
[2021-12-27 08:54] LABS: Alanine Aminotransferase 19 Units/L (7-52); Albumin 2.7 g/dL (3.5-5.7); Alkaline Phosphatase 85 Units/L (34-104); Aspartate Amino Transferase 30 Units/L (13-39); BUN/Creatinine Ratio 14 (6-26); Bilirubin,Total 1.3 mg/dL (0.3-1.0); Blood Urea Nitrogen 7 mg/dL (8-23); Carbon Dioxide 29 mEq/L (23-29); Chloride 106 mEq/L (98-107); Globulin 2.8 g/dL (2.4-3.5); Glucose 169 mg/dL (70-105); Osmolality,Calculated 286 (280-300); Potassium 3.7 mEq/L (3.5-5.1); Sodium 137 mEq/L (136-145); Total Protein 5.5 g/dL (6.4-8.9)
[2021-12-27 08:58] LABS: Lymphocytes # 1.1 K/mcL (0.6-4.6); Monocytes # 0.2 K/mcL (0.0-1.3)
[2021-12-27 08:59] LABS: Anisocytosis 2+ (Not Present); Ovalocytes 1+ (Not Present); Poikilocytosis 1+ (Not Present); Reactive Lymphocytes Present (Not Present)
[2021-12-27 09:00] LABS: Platelet Estimate Marked Decrease (Normal)
[2021-12-27] MEDS ORDERED: Ziprasidone 10 MG, Closed System Device IM Kit 1 EACH in Water for inj. (sterile) 0.5 ML IM ONE (10:11)
[2021-12-27] MEDS: Insulin LISPRO 300 UNITS/3 ML VIAL SUBQ SCH ×3 (11:14→17:30)
[2021-12-27] MEDS: Nystatin POWDER 30 GM BOTTLE TP SCH ×2 (11:14→15:19)
[2021-12-27] MEDS: Propranolol LA (24 HR) 60 MG CAP.SA.24H PO SCH (11:14)
[2021-12-27] MEDS: Lactulose Oral Soln 20 GM/30 ML UDC PO SCH ×2 (11:14→15:19)
[2021-12-27] MEDS: Multivit/Ca/Min/Fe/FA 1 TAB TABLET PO SCH (11:14)
[2021-12-27] MEDS: Furosemide 20 MG/2 ML VIAL IVP SCH (11:15)
[2021-12-27] MEDS: cefTRIAXone 2,000 MG in 0.9 % Sodium Chloride 20 ML IVP SCH (11:16)
[2021-12-27] MEDS ORDERED: Insulin DETEMIR 100 UNIT/ML X5UNITS SUBQ SCH (12:45)
[2021-12-27 16:13] VITALS: BP 98/52; PULSE 63; TEMP 98.7; O2SAT 93
[2021-12-27] MEDS ORDERED: QUEtiapine Fumarate 25 MG TABLET PO SCH (21:00)
== END 2021-12-27 19:30 ==
LOC: EMEROOARM 15:45 → 2ANU 15:45 → SUATTDRO 12-19 12:06 → 2ANU 12-19 14:06 → SUATTDRO 12-21 15:56
PROVIDERS: ADMIT Internal Medicine; ATTEND Hospitalist